=== PATIENT | female | born 1935 | race Caucasian/White ===

== ENCOUNTER 2016-04-14 08:36 | Outpatient (CLI) | payer MEDICARE, BC | END 2016-04-14 08:37 | disposition home or self-care (01) | DX: R19.7 Diarrhea, unspecified (principal); K62.5 Hemorrhage of anus and rectum; K63.89 Other specified diseases of intestine ==

== ENCOUNTER 2016-05-25 08:00 | Outpatient (CLI) | payer MEDICARE, BC | END 2016-05-25 08:01 | disposition home or self-care (01) | DX: Z79.899 Other long term (current) drug therapy (principal); K51.919 Ulcerative colitis, unspecified with unspecified complications; D64.9 Anemia, unspecified ==

== ENCOUNTER 2016-05-31 10:16 | Outpatient (CLI) | payer MEDICARE, BC ==
[2016-05-31] MEDS ORDERED: IOPAMIDOL-300 100 ML VIAL IVP ONE ×2 (10:54)
== END 2016-05-31 10:17 | disposition home or self-care (01) ==
DX: R91.1 Solitary pulmonary nodule (principal)
CPT/HCPCS: 71260; Q9967

== ENCOUNTER 2016-07-20 08:07 | Outpatient (CLI) | payer MEDICARE, BC | END 2016-07-20 08:08 | disposition home or self-care (01) | DX: D64.9 Anemia, unspecified (principal) ==

== ENCOUNTER 2016-09-28 10:32 | Outpatient (CLI) | payer MEDICARE, BC ==
--- NOTE | 2016-09-28 14:36 | XRAY Report ---
THREE VIEW LEFT GREAT TOE: 09/28/2016 CLINICAL INDICATION: Pain. FINDINGS: AP, lateral, and oblique views of the left great toe demonstrate osteoarthritis of the 1st metatarsophalangeal joint. There is no evidence of acute fracture or dislocation. No radiopaque fore ign body is seen in the soft tissues. IMPRESSION: OSTEOARTHRITIS. NO EVIDENCE OF ACUTE FRACTURE. JOB #: [id number] EXT JOB #:[id number]
--- NOTE | 2016-09-28 15:12 | XRAY Report ---
THREE VIEW LUMBAR SPINE: 09/28/2016 CLINICAL INDICATION: Back pain after fall last week. FINDINGS: AP, lateral, and coned down views of the lumbar spine are compared to previous films of . Degenerative disk and facet disease appears stable, as does degenerative levoscoliosis. There is no e vidence of compression fracture. Degenerative anterolisthesis of L4 on L5 is unchanged. IMPRESSION: DEGENERATIVE CHANGES. NO EVIDENCE OF INTERVAL FRACTURE. JOB #: [id number] EXT JOB #:[id number]
== END 2016-09-28 10:33 | disposition home or self-care (01) ==
LOC: DI 10:32
PROVIDERS: ATTEND Internal Medicine
DX: M19.072 Primary osteoarthritis, left ankle and foot (principal); M51.36 Other intervertebral disc degeneration, lumbar region; M47.896 Other spondylosis, lumbar region; M43.16 Spondylolisthesis, lumbar region
CPT/HCPCS: 72100; 73660

== ENCOUNTER 2016-10-21 10:25 | Outpatient (CLI) | payer MEDICARE, BC | END 2016-10-21 10:26 | disposition home or self-care (01) | LOC: LAB.R 10:25 | PROVIDERS: ATTEND Internal Medicine | DX: R35.0 Frequency of micturition (principal) | CPT/HCPCS: 87086 ==

== ENCOUNTER 2017-03-16 07:46 | Day surgery (SDC) | payer MEDICARE, BC ==
[~2017-03-16 07:46] MED LIST: BRIMONIDINE 0.2% OPHTH DROPS 5 ML ONE; CYCLOPENTOLATE 1% OPHTH DROPS 2 ML ONE; KETOROLAC 0.45% OPHTH DROPS ONE; MIDAZOLAM 2 MG/2 ML VIAL IVP ONE; PHENYLEPHRINE 2.5% OPHTH 2 ML DROPS ONE; PROPARACAINE 0.5% OPHTH DROPS 15 ML ONE; TIMOLOL 0.5% OPHTH DROPS ONE
[2017-03-16] MEDS ORDERED: PROPARACAINE 0.5% OPHTH DROPS 15 ML RIGHTEYE ONE ×3 (08:30→09:11)
[2017-03-16] MEDS ORDERED: CYCLOPENTOLATE 1% OPHTH DROPS 2 ML RIGHTEYE ONE (08:30)
[2017-03-16] MEDS ORDERED: KETOROLAC 0.45% OPHTH DROPS RIGHTEYE ONE (08:30)
[2017-03-16] MEDS ORDERED: PHENYLEPHRINE 2.5% OPHTH 2 ML DROPS RIGHTEYE ONE (08:30)
[2017-03-16] MEDS ORDERED: LACTATED RINGERS 500 ML IV ONE (08:38)
[2017-03-16] MEDS ORDERED: EPINEPHrine 1 MG/ML AMP IVP ONE ×2 (09:08→09:11)
[2017-03-16] MEDS ORDERED: BRIMONIDINE 0.2% OPHTH DROPS 5 ML OPTH ONE ×2 (09:08→09:11)
[2017-03-16] MEDS ORDERED: TRIAMCIN/MOXIFLOX/VANCO 1 ML VIAL IO ONE ×3 (09:09→09:11)
[2017-03-16] MEDS ORDERED: TIMOLOL 0.5% OPHTH DROPS OPTH ONE ×2 (09:09→09:11)
[2017-03-16] MEDS ORDERED: CHONDR SULF/HYALURONATE SYRINGE IO ONE ×2 (09:09→09:11)
[2017-03-16] MEDS ORDERED: BSS/LIDOCAINE/EPINEPHRINE 1 ML SYRINGE IO ONE ×3 (09:09→09:11)
[2017-03-16 09:45] VITALS: BP 137/59
--- NOTE | 2017-03-17 15:25 | OPERATIVE REPORT ---
DATE OF SURGERY: 03/16/2017 PREOPERATIVE DIAGNOSIS: Visually significant cataract, right eye. Cataract surgery was performed on the left eye on 12/25/2008 by a different surgeon. She has about 1-3/4 diopter of astigmatism in the left eye and wished to have arcuates placed on the left eye as long as we had the laser available, which was performed. POSTOPERATIVE DIAGNOSIS: Visually significant cataract, right eye. Cataract surgery was performed on the left eye on 12/25/2008 by a different surgeon. She has about 1-3/4 diopter of astigmatism in the left eye and wished to have arcuates placed on the left eye as long as we had the laser available, which was performed. PROCEDURE: Phacoemulsification with posterior chamber intraocular lens implant, right eye. SURGEON: Ector Arellano MD ANESTHESIA: Monitored anesthesia care. COMPLICATIONS: None. OPERATIVE INDICATIONS: This is an 81-year-old woman with progressive vision loss in the right eye due to 4+ nuclear sclerotic cataract. Best corrected visual acuity was 20/25 with glare to 20/80 in the right eye. INDICATIONS FOR SURGERY: Overall decrease in vision, difficulty seeing words on a computer screen, difficulty reading and difficulty driving in low light or at night. She was consented at length concerning risks and benefits of cataract surgery, after which she expressed desire to proceed with surgery. OPERATIVE PROCEDURE: The patient was taken to OR #3 and placed under monitored anesthesia care. Surgical timeout was conducted confirming correct patient, correct procedure and correct surgical site. She was placed on the LenSx laser and her eye docked to interface, left eye first. Two arcuate incisions were placed on the left eye with the laser in about 4 seconds. The laser was then placed over the right eye and the right eye was docked to the laser interface. The laser performed the capsulotomy and lens softening, phaco wounds and arcuate keratotomy incisions on the right eye. She was then moved to the operating microscope, given topical anesthesia and prepped and draped in the usual sterile fashion. Eye was entered at the 12 and 9 o'clock positions. Intracameral Shugarcaine was injected into the anterior chamber, followed by Viscoat. Capsulorrhexis flap created by the LenSx laser was removed from the anterior chamber. Nucleus was hydrodissected and phacoemulsified. Cortex was evacuated using automated infusion aspiration; however, after starting with the nasal side, there was a small dehiscence nasally. Cortical cleanup was continued ; however, while removing the sub-wound cortex, it was noticed that most of the posterior capsule had now parted ways. There was a about a quadrant of cortex inferotemporally. Viscoat was injected in the wound. There was no vitreous. So the sulcus was inflated with Provisc and a 20.0 three-piece [id number] intraocular lens was injected into the sulcus and placed into rhexis capture as the anterior capsule was intact. Again, no vitreous to the wound. Approximately 0.7 mL of a mixture of triamcinolone, moxifloxacin, and vancomycin was injected subconjunctivally in the superior quadrant for infection and inflammation prophylaxis. I and A was used to evacuate the viscoelastic materials. The eye was pushed back into rhexis capture again. Eye was inflated to physiologic pressure using a balanced salt solution and found to be watertight. The patient was taken from the operating room in good condition and given postoperative instructions and she was also informed of the backup lens use and why and will be followed up with tomorrow. TD: 03/17/2017 07:54 JOHN PAUL
== END 2017-03-16 07:47 | disposition home or self-care (01) ==
LOC: SDS 07:46
PROVIDERS: ATTEND Ophthalmology
PROC: 08RJ3JZ Replacement of Right Lens with Synthetic Substitute, Percutaneous Approach (ICD-10-PCS; principal; 2017-03-16 09:00)
DX: H25.11 Age-related nuclear cataract, right eye (principal); H52.201 Unspecified astigmatism, right eye
CPT/HCPCS: 66984; A9270; J3490; V2632

== ENCOUNTER 2017-04-06 06:48 | Day surgery (SDC) | payer MEDICARE, BC ==
[2017-04-06] MEDS ORDERED: LACTATED RINGERS 1,000 ML IV ONE (07:30)
[2017-04-06] MEDS ORDERED: MIDAZOLAM 2 MG/2 ML VIAL IVP ONE (08:02)
[2017-04-06] MEDS ORDERED: BRIMONIDINE 0.2% OPHTH DROPS 5 ML OPTH ONE (08:25)
[2017-04-06] MEDS ORDERED: EPINEPHrine 1 MG/ML AMP IVP ONE (08:25)
[2017-04-06] MEDS ORDERED: TRIAMCIN/MOXIFLOX/VANCO 1 ML VIAL IO ONE (08:26)
[2017-04-06] MEDS ORDERED: BSS/LIDOCAINE/EPINEPHRINE 1 ML SYRINGE IO ONE (08:26)
[2017-04-06] MEDS ORDERED: CHONDR SULF/HYALURONATE SYRINGE IO ONE (08:26)
[2017-04-06] MEDS ORDERED: TIMOLOL 0.5% OPHTH DROPS OPTH ONE (08:26)
[2017-04-06] MEDS ORDERED: ACETYLCHOLINE 20 MG/2 ML KIT IO ONE ×4 (08:27→09:07)
[2017-04-06 10:30] VITALS: BP 134/84
--- NOTE | 2017-04-06 11:02 | OPERATIVE REPORT ---
DATE OF SERVICE: 04/06/2017 Physician: Ector Arellano MD DATE OF SURGERY: 04/06/2017 PREOPERATIVE DIAGNOSIS: Subluxed intraocular lens, right eye. The lens was noted to be subluxed 1 day post-op from a cataract surgery on 03/16/2017. POSTOPERATIVE DIAGNOSIS: Subluxed intraocular lens, right eye. The lens was noted to be subluxed 1 day post-op from a cataract surgery on 03/16/2017. PROCEDURE PERFORMED: Iris suture fixation of posterior chamber intraocular lens. SURGEON: Dr. Ector Arellano. ANESTHESIA: Monitored anesthesia care. COMPLICATIONS: None. OPERATIVE INDICATIONS: This is an 81-year-old woman who underwent cataract surgery on 03/16/2017. On 03/17/2017, one day post-op, it was noted that the IOL was not sulcus fixated and was in fact subluxed inferonasally. Vision was poor. It was decided at to attempt either iris suture fixation of the 3-piece existing IOL or, if that was not possible, to explant the IOL and place an anterior chamber intraocular lens instead. She was consented at length concerning risks and benefits of IOL repositioning and iris fixation and/or anterior chamber lens after IOL explantation and she expressed desire to proceed with surgery. OPERATIVE PROCEDURE: The patient was taken into OR #3 and placed under monitored anesthesia care. A surgical timeout was conducted confirming the correct patient, correct procedure, and correct surgical site. She was given topical anesthesia and then prepped and draped in the usual sterile fashion. The eye was entered at the 12 o'clock position through which intracameral Shugarcaine and Viscoat was placed into the anterior chamber. Using micrograspers and a Kuglen hook, the iris was pushed out of the way to find the IOL. It wasfound to be displaced rather dramatically to the nasal side, but the IOL was able to be grasped by the micrograspers. The optic was brought up through the pupil leaving the haptics behind the iris, leaving the IOL optic in pupil-capture. Once this was performed, four 1-mm paracenteses were placed superonasally, superotemporally, inferotemporally and inferonasally in order to accommodate suturing. The IOL was levitated with the micrograspers and a CIF-4 with a 13-mm needle on a 10.0 Prolene suture was passed through the nasal paracentesis inferiorly, through the iris, beneath the inferior haptic, back out through the iris, and then a cannula was used to guide the needle through the inferotemporal paracentesis. The suture was left untied while the same procedure was performed through the superior paracentesis in order to suture capture the superior IOL haptic. Once both haptics were snagged, a Sinskey hook was introduced through a new superior paracentesis and both suture ends were pulled through the paracentesis. This was also performed with the inferior suture. Once both sutures had been brought externally, tiers were used to place locked sutures in a 2-1-1 loop configuration, both superiorly and inferiorly. After more viscoelastic was placed in the eye, microscissors were brought into the anterior chamber through the previously made phaco wound and the suture tails cut short. A vitrector was placed behind the IOL and an anterior core vitrectomy was performed to remove vitreous from the anterior chamber. With the sutures in place, the IOL was centered. More Miochol was injected into the eye to bring the pupil down. The IOL optic was pushed back through the pupil into the posterior chamber. The pupil centered-up and was round. The vitrector was used to remove viscoelastic from the anterior chamber. The main wound was sutured with one 10-0 nylon suture and the eye was watertight. Some triamcinolone, moxifloxacin, vancomycin was injected into the anterior chamber to look for vitreous. All vitreous was away from the wound but here was some coming through along the temporal pupil margin, but was left alone. The rest of the triamcinolone, moxifloxacin, vancomycin solution was injected superiorly under the conjunctiva for infection and inflammation prophylaxis. The eye was again verified to be water pressure tight, the patient was taken from the operating room in good condition, and given postoperative instructions. TD: 04/06/2017 11:49 JOHN PAUL
== END 2017-04-06 06:49 | disposition home or self-care (01) ==
LOC: SDS 06:48
PROVIDERS: ATTEND Ophthalmology
PROC: 08W Eye, Revision (ICD-10-PCS; principal; 2017-04-06 08:00)
DX: T85.22XA Displacement of intraocular lens, initial encounter (principal)
CPT/HCPCS: 66825; A9270; J7120

== ENCOUNTER 2017-05-22 08:51 | Outpatient (CLI) | payer MEDICARE, BC ==
--- NOTE | 2017-05-22 12:42 | XRAY Report ---
TWO VIEW CHEST: 05/22/2017 CLINICAL INDICATION: Cough. COMPARISON: CT 05/31/2016. FINDINGS: Frontal and lateral views of the chest demonstrate a normal cardiac silhouette. The lungs demonstrate minimal stable scarring. No new infiltrate, effusion, or pneumothorax is present. IMPRESSION: MINIMAL SCARRING. NO EVIDENCE OF ACUTE CARDIOPULMONARY DISEASE. TD: 05/22/2017 12:41
== END 2017-05-22 08:52 | disposition home or self-care (01) ==
LOC: DI 08:51
PROVIDERS: ATTEND Internal Medicine
DX: R05 Cough (principal)
CPT/HCPCS: 71046

== ENCOUNTER 2017-09-08 07:42 | Outpatient (CLI) | payer MEDICARE, BC ==
[2017-09-08 08:05] LABS: BASOPHILS % (AUTO) 0.4 %; EOSINOPHILS # (AUTO) 0.1 10^3/uL (0.0-0.7); EOSINOPHILS % (AUTO) 1.9 %; HGB - HEMOGLOBIN 12.7 g/dL (12.0-16.0); LYMPHOCYTES % (AUTO) 35.7 %; MEAN CORPUSCULAR HEMOGLOBIN 32.5 pg (27.0-31.0); MEAN CORPUSCULAR VOLUME 95.6 fL (81.0-99.0); MEAN PLATELET VOLUME 7.1 fL (7.9-10.8); MONOCYTES # (AUTO) 0.4 10^3/uL (0.0-1.0); MONOCYTES % (AUTO) 7.4 %; NEUTROPHILS # (AUTO) 3.1 10^3/uL (1.5-6.6); NEUTROPHILS % (AUTO) 54.6 %; PLT - PLATELET COUNT 326 10^3/uL (130-450); RED BLOOD COUNT 3.91 10^6/uL (4.20-5.40); WHITE BLOOD COUNT 5.7 x10^3/uL (4.8-10.8)
[2017-09-08 08:32] LABS: ALBUMIN 3.8 g/dL (3.2-5.5); ALBUMIN/GLOBULIN RATIO 1.2 (1.0-2.2); BILIRUBIN,TOTAL 0.6 mg/dL (0.2-1.0); CALCIUM 8.8 mg/dL (8.5-10.3); CRP HIGH SENSITIVITY 3.3 mg/L
== END 2017-09-08 07:43 | disposition home or self-care (01) ==
LOC: LAB 07:42
PROVIDERS: ATTEND Internal Medicine Gastroenterology
DX: K51.00 Ulcerative (chronic) pancolitis without complications (principal)
CPT/HCPCS: 36415; 80053; 82306; 82728; 83540; 84466; 85025; 85651; 86141

== ENCOUNTER 2017-10-24 08:00 | Outpatient (CLI) | payer MEDICARE, BC ==
[2017-10-24 13:36] LABS: BASOPHILS % (AUTO) 0.3 %; EOSINOPHILS # (AUTO) 0.1 10^3/uL (0.0-0.7); EOSINOPHILS % (AUTO) 2.2 %; HGB - HEMOGLOBIN 12.7 g/dL (12.0-16.0); LYMPHOCYTES # (AUTO) 1.8 10^3/uL (1.5-3.5); LYMPHOCYTES % (AUTO) 39.2 %; MEAN CORPUSCULAR HEMOGLOBIN 32.6 pg (27.0-31.0); MEAN CORPUSCULAR HGB CONC 33.8 g/dL (32.0-36.0); MEAN CORPUSCULAR VOLUME 96.5 fL (81.0-99.0); MEAN PLATELET VOLUME 7.6 fL (7.9-10.8); MONOCYTES # (AUTO) 0.4 10^3/uL (0.0-1.0); MONOCYTES % (AUTO) 8.3 %; NEUTROPHILS # (AUTO) 2.3 10^3/uL (1.5-6.6); PLT - PLATELET COUNT 347 10^3/uL (130-450); RED BLOOD COUNT 3.89 10^6/uL (4.20-5.40); RED CELL DISTRIBUTION WIDTH 13.2 % (12.0-15.0); WHITE BLOOD COUNT 4.6 x10^3/uL (4.8-10.8)
[2017-10-24 13:50] LABS: ALBUMIN 3.9 g/dL (3.2-5.5); ALBUMIN/GLOBULIN RATIO 1.4 (1.0-2.2); BILIRUBIN,TOTAL 0.9 mg/dL (0.2-1.0); CALCIUM 8.8 mg/dL (8.5-10.3); TOTAL PROTEIN 6.7 g/dL (6.7-8.2)
== END 2017-10-24 08:01 | disposition home or self-care (01) ==
LOC: LAB.R 08:00
PROVIDERS: ATTEND Internal Medicine
DX: K51.90 Ulcerative colitis, unspecified, without complications (principal); R05 Cough; M19.90 Unspecified osteoarthritis, unspecified site; Z79.899 Other long term (current) drug therapy
CPT/HCPCS: 80053; 84443; 85025

== ENCOUNTER 2017-11-09 09:56 | Outpatient (CLI) | payer MEDICARE, BC ==
--- NOTE | 2017-11-09 11:48 | DEXA Report ---
Procedure Date: 11/09/2017 Accession Number: [id number] / [id number] Procedure: DEX - Dexa Spine and/or Hip CPT Code: FULL RESULT: EXAM: Dexa Spine and/or Hip DATE: 11/09/2017 10:38 AM CLINICAL HISTORY: POSTMENOPAUSAL TECHNIQUE: Dual energy x-ray absorptiometry (DXA) was performed on a TORCH.sh System. Regions measured are the AP Spine, femoral neck, and if needed forearm. COMPARISON: None. In accordance with the International Society for Clinical Densitometry (ISCD) guidelines, data from previous exams may be reanalyzed using current recommendations and techniques. This is done to allow a more accurate basis for comparison with the current study. FINDINGS: The data for the lumbar spine is as follows: BMD (g/cm/cm) T-SCORE Z-SCORE REGION L1 0.941 -1.6 0.6 L2 1.075 -1.0 1.1 L3 1.261 0.5 2.7 L4 1.347 1.2 3.4 TOTAL 1.186 0.1 2.2 NOTE: All evaluable vertebrae are used for classification The data for the hip is as follows: BMD (g/cm/cm) T-SCORE Z-SCORE REGION Neck 0.815 -1.6 0.9 TOTAL 0.906 -0.8 1.6 NOTE: The femoral neck or total proximal femur, whichever is lowest, is used for classification. IMPRESSION: THE WHO CLASSIFICATION BASED ON THE INTERNATIONAL REFERENCE STANDARD IS OSTEOPENIA. THE FRACTURE RISK IS INCREASED. RECOMMENDATION: Patients with diagnosis of osteoporosis or osteopenia should have regular bone mineral density assessment. For those eligible for Medicare, routine testing is allowed once every 2 years. Testing frequency can be increased for patients who have rapidly progressing disease or for those who are receiving medical therapy to restore bone mass. COMMENT: World Health Organization (WHO) definitions for osteoporosis and osteopenia: NORMAL BMD: T-score at -1.0 or higher, fracture risk is low OSTEOPENIA BMD: T-score between -1.0 and -2.5, fracture risk is increased. OSTEOPOROSIS BMD: T-score at -2.5 or lower, fracture risk is high. National Osteoporosis Foundation recommends: 1. Obtain adequate dietary calcium (at least 1200 mg per day) and vitamin D (400-800 international units per day). 2. Participate, as appropriate, in regular weightbearing and muscle-strengthening exercise. 3. Avoid tobacco use and reduce alcohol and caffeine intake. 4. For more detailed information see the website at www.NOF.org.
== END 2017-11-09 09:57 | disposition home or self-care (01) ==
LOC: DI 09:56
PROVIDERS: ATTEND Internal Medicine
DX: M85.89 Other specified disorders of bone density and structure, multiple sites (principal); Z78.0 Asymptomatic menopausal state
CPT/HCPCS: 77080

== ENCOUNTER 2018-08-16 10:58 | Outpatient (CLI) | payer MEDICARE, BC ==
--- NOTE | 2018-08-16 15:26 | XRAY Report ---
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 CLINICAL HISTORY: Painful left hallux and 2nd MT joints. COMPARISON: TOE(S) LT 09/28/2016 10:39 AM. TECHNIQUE: 3 views. FINDINGS: Bones: Normal. No fractures or bone lesions. Joints: Stable mild bunion deformity. Stable mild to moderate degenerative arthritis with greater involvement of the metatarsal head. Soft Tissues: Normal. No soft tissue swelling. IMPRESSION: Stable mild bunion deformity and degenerative changes of the first MTP joint. No acute fracture. RADIA
== END 2018-08-16 10:59 | disposition home or self-care (01) ==
LOC: DI 10:58
PROVIDERS: ATTEND Podiatrist
DX: M21.612 Bunion of left foot (principal); M19.072 Primary osteoarthritis, left ankle and foot

== ENCOUNTER 2018-11-30 08:00 | Outpatient (CLI) | payer MEDICARE, BC ==
[2018-11-30 21:36] LABS: CANDIDA GROUP DNA NEGATIVE (NEGATIVE); CANDIDA KRUSEI DNA NEGATIVE (NEGATIVE); TRICHOMONAS VAGINALIS DNA NEGATIVE (NEGATIVE)
== END 2018-11-30 23:59 | disposition home or self-care (01) ==
LOC: LAB.R 08:00
PROVIDERS: ATTEND Obstetrics & Gynecology
DX: N76.0 Acute vaginitis (principal)
CPT/HCPCS: 87661; 87801

== ENCOUNTER 2019-07-04 07:00 | Outpatient (CLI) | payer MEDICARE, BC | END 2019-07-04 23:59 | disposition home or self-care (01) | LOC: LAB.WCP 07:00 | PROVIDERS: ATTEND Physician Assistant Medical | DX: R30.0 Dysuria (principal) | CPT/HCPCS: 87086 ==

== ENCOUNTER 2019-12-24 08:09 | Outpatient (CLI) | payer MEDICARE, BC ==
[2019-12-24] MEDS ORDERED: IOVERSOL 320 100 ML VIAL IVP ONE ×2 (08:23→10:21)
[2019-12-24] MEDS ORDERED: IOVERSOL 320 50 ML VIAL ONE (08:24)
[2019-12-24] MEDS ORDERED: IOVERSOL 320 50 ML VIAL PO ONE (10:21)
--- NOTE | 2019-12-24 10:45 | CT Report ---
PROCEDURE: Abdomen/Pelvis W INDICATIONS: MYCOSIS FUNGOIDES CONTRAST: IV CONTRAST: Optiray 320 ml: 100 PO CONTRAST: Optiray 320 ml50 TECHNIQUE: After the administration of contrast, 5 mm thick sections acquired from the diaphragms to the sym physis. 5 mm thick coronal and sagittal reformats were acquired. For radiation dose reduction, the following was used: automated exposure control, adjustment of mA and/or kV according to patient size . COMPARISON: None. FINDINGS: Image quality: Excellent. ABDOMEN: Lung bases: Lung bases are clear. Heart size is normal. Moderate-sized paraesophageal hernia identi fied. Solid organs: Liver and spleen are normal in size and enhancement. Gallbladder is unremarkable. Bi liary system is non dilated. Pancreas enhances normally. No adrenal nodules. Kidneys demonstrate n ormal size and enhancement, without hydronephrosis. Spleen is unremarkable. There are scattered sple bryce calcifications likely representing remote granulomatous disease. Peritoneum and bowel: Bowel loops demonstrate normal wall thickness and caliber. Patulous appearing cecum which abuts the right ovary/adnexa. No free fluid or air. Nodes and vessels: No retroperitoneal or mesenteric adenopathy by size criteria. Aorta and inferior vena cava are normal in size. Miscellaneous: No ventral hernias. PELVIS: Genitourinary: Bladder wall thickness is normal. Miscellaneous: No inguinal hernias or adenopathy. Bones: No suspicious bony lesions. No acute vertebral body compression fractures. Multilevel spond ylitic changes throughout the imaged spine. Findings are most severe at L4-5 and and L2-3. IMPRESSION: 1. No acute abnormalities identified in the abdomen or pelvis. 2. No evidence for metastatic disease in the chest or abdomen. Specifically, no adenopathy is identif ied. 3. Moderate-sized paraesophageal hernia. Reviewed by: Dario Angeles MD on 12/24/2019 10:44 AM PDT Approved by: Dario Angeles MD on 12/24/2019 10:44 AM PDT Station ID: [id number]
--- NOTE | 2019-12-24 12:27 | CT Report ---
PROCEDURE: CHEST W INDICATIONS: MYCOSIS FUNGOIDES CONTRAST: IV CONTRAST: Optiray 320 ml: 100 PO CONTRAST: Optiray 320 ml50 TECHNIQUE: After the administration of intravenous contrast, 5 mm thick sections acquired from the pulmonary api tony to the posterior costophrenic angles. 7 mm thick coronal MIP reformats were acquired. For radia tion dose reduction, the following was used: automated exposure control, adjustment of mA and/or kV according to patient size. COMPARISON: 05/31/2016. FINDINGS: Image quality: Excellent. Lungs and pleura: Continued interval decrease in size and conspicuity of pleural-based inferior righ t upper lobe opacity likely representing postinfectious scarring. Multiple calcified granulomas are r edemonstrated. Numerous scattered noncalcified lymph nodes are visualized and remain stable in appear ance. However, 2 demonstrate slight interval increase in conspicuity/density but not size. One is not ed in the posterior aspect of the superior right lower lobe measuring 6 mm in size (image 129, series 3). The second is noted in the periphery of the left lower lobe measuring 5 mm (image 225, series 3) . No acute air space opacities. No pleural effusions or pneumothorax. Central and peripheral airway s are patent and normal in caliber. Mediastinum: Heart size is normal. No pericardial effusion. No mediastinal or hilar adenopathy by size criteria. Multiple calcified mediastinal and right hilar lymph nodes compatible with prior granu lomatous disease. Thoracic aorta and central pulmonary arteries are normal in size. Esophagus is no rmal in caliber. Moderate-sized paraesophageal hernia is noted. Bones and chest wall: No suspicious bony lesions. No acute vertebral body compression fractures. M ultilevel thoracic spondylitic changes most severe in the upper thoracic spine, not significantly antonio nged. No axillary or supraclavicular adenopathy by size criteria. Thyroid gland is unremarkable. Abdomen: Visualized upper abdominal solid organs appear normal. Upper abdominal bowel loops are nor mal in caliber. IMPRESSION: 1. CT chest without acute cardiopulmonary abnormalities. 2. Redemonstration of multiple scattered bilateral noncalcified pulmonary nodules. Most are stable in size with 2 appearing more dense. The largest nodule measures approximately 6 mm. Recommend follow-u p chest CT in 3-6 months to document continued stability. 3. No CT evidence for suspicious adenopathy in the axilla, mediastinum, or hilum. 4. Findings compatible with prior granulomatous disease. Reviewed by: Dario Angeles MD on 12/24/2019 12:25 PM PDT Approved by: Dario Angeles MD on 12/24/2019 12:25 PM PDT Station ID: [id number]
== END 2019-12-24 08:10 | disposition home or self-care (01) ==
LOC: DI 08:09
PROVIDERS: ATTEND Dermatology
DX: C84.00 Mycosis fungoides, unspecified site (principal); R91.8 Other nonspecific abnormal finding of lung field; K44.9 Diaphragmatic hernia without obstruction or gangrene
CPT/HCPCS: 71260; 74177; Q9967

== ENCOUNTER 2020-09-04 13:57 | Outpatient (CLI) | payer MEDICARE, BC | END 2020-09-04 13:58 | disposition home or self-care (01) | LOC: COV 13:57 | PROVIDERS: ATTEND Surgery | DX: Z01.812 Encounter for preprocedural laboratory examination (principal); K51.90 Ulcerative colitis, unspecified, without complications; K21.9 Gastro-esophageal reflux disease without esophagitis; R10.13 Epigastric pain; Z92.83 Personal history of failed moderate sedation; Z20.822 Contact with and (suspected) exposure to COVID-19 ==

== ENCOUNTER 2020-09-07 07:07 | Day surgery (SDC) | payer MEDICARE, BC ==
[2020-09-07] MEDS ORDERED: LACTATED RINGERS 1,000 ML IV ONE (07:11)
[2020-09-07] MEDS ORDERED: PROPOFOL 200 MG/20 ML VIAL IVP ONE (08:08)
[2020-09-07] MEDS ORDERED: LIDOCAINE-MPF 2% 5 ML VIAL ONE (08:08)
[2020-09-07] MEDS ORDERED: MIDAZOLAM 2 MG/2 ML VIAL ONE (08:09)
[2020-09-07] MEDS ORDERED: fentaNYL 100 MCG/2 ML VIAL ONE (08:09)
--- NOTE | 2020-09-07 08:13 | ANESTHESIA ---
Pre-Anesthesia VS, & Labs - Diagnosis gerd, dyspepsia - Procedure egd, cscope Vital Signs: Temp Pulse Resp BP Pulse Ox 36.1 C L 75 16 146/62 H 97 09/07/20 07:14 09/07/20 07:14 09/07/20 07:14 09/07/20 07:14 09/07/20 07:14 Height: 5 ft 3 in Weight (kg): 54.8 kg Body Mass Index: 21.4 BMI Classification: Healthy weight - NPO >8 hours - Is Patient ?: No - Lab Results Lab results reviewed: Yes Home Medications and Allergies Home Medications: Ambulatory Orders Vedolizumab [Entyvio] 300 mg IV ONCE 09/04/20 Multivitamin [Multi Vitamin Daily] 1 mg PO DAILY 06/13/14 Docosahexaenoic Acid/Epa [Fish Oil Concentrate Softgel] 1 cap PO DAILY 12/23/14 Cholecalciferol (Vitamin D3) [Vitamin D3] 1 tab ORAL DAILY 02/23/16 Vit A/Vit C/Vit E/Zinc/Copper [Icaps Areds Softgel] 1 each PO BID 07/20/17 Lactobacillus Acidophilus [Probiotic Acidophilus] 1 tab ORAL DAILY 07/29/19 Mecobalamin [B-12] 1 tab PO DAILY 03/06/20 Vedolizumab [Entyvio] 300 mg IV ONCE 09/04/20 Allergies/Adverse Reactions: Allergies Allergy/AdvReac Type Severity Reaction Status Date / Time prednisone AdvReac Rash Verified 07/29/19 09:04 Sulfa (Sulfonamide AdvReac Unknown Verified 07/29/19 09:04 Antibiotics) Anes History & Medical History - Anesthetic History Anesthesia Complications: reports: No previous complications Family history of Anesthesia Complications: Denies Family history of Malignant Hyperthermia: Denies - Medical History Cardiovascular: reports: High cholesterol Pulmonary: reports: Asthma, Pneumonia Gastrointestinal: reports: GERD, Ulcerative colitis Urinary: reports: None Musculoskeletal: reports: Rheumatoid arthritis Endocrine/Autoimmune: reports: None Blood Disorders: reports: None Skin: reports: Rosacea Smoking Status: Former smoker - Surgical History Eyes Ears Nose Throat (EENT): reports: Cataracts, Tonsil/Adenoidectomy Orthopedic: reports: Other Exam General: Alert, Oriented x3, Cooperative Dental: WNL Mouth Openin Fingerbreadth Neck Mobility: Normal Mallampati classification: II Thyromental Distance: 4-6 cm Respiratory: Lungs clear, Normal breath sounds, No respiratory distress Cardiovascular: Regular rate Neurological: Normal speech Mental/Cognitive Status: Alert/Oriented X3, Normal for patient Cognitive Status: Within normal limits Plan Anesthesia Type: Total IV Consent for Procedure(s) Verified and Reviewed: Yes Code Status: Attempt Resuscitation ASA classification: 2-Mild systemic disease Is this case an emergency?: No
[2020-09-07] MEDS ORDERED: LACTATED RINGERS 200 ML IV ONE (09:41)
[2020-09-07 10:20] VITALS: BP 149/51
--- NOTE | 2020-09-07 10:54 | ANESTHESIA POST OP EVALUATION ---
Anesthesia Post Eval - Post Anesthesia Eval Vitals: Last Vital Signs Temp 36.2 C L 09/07/20 10:14 Pulse 57 L 09/07/20 10:19 Resp 16 09/07/20 10:19 BP 149/51 H 09/07/20 10:19 Pulse Ox 99 09/07/20 10:19 CV Function Including HR & BP: Stable Pain Control: Satisfactory Nausea & Vomiting: Negative Mental Status: Baseline Respiratory Status: Airway Patent Hydration Status: Satisfactory Anesthesia Complications: None
== END 2020-09-07 07:08 | disposition home or self-care (01) ==
LOC: SDS 07:07
PROVIDERS: ATTEND Surgery
PROC: 0DBP8ZX Excision of Rectum, Via Natural or Artificial Opening Endoscopic, Diagnostic (ICD-10-PCS; 2020-09-07)
PROC: 0DBB8ZX Excision of Ileum, Via Natural or Artificial Opening Endoscopic, Diagnostic (ICD-10-PCS; 2020-09-07)
PROC: 0DBM8ZX Excision of Descending Colon, Via Natural or Artificial Opening Endoscopic, Diagnostic (ICD-10-PCS; 2020-09-07)
PROC: 0DBH8ZX Excision of Cecum, Via Natural or Artificial Opening Endoscopic, Diagnostic (ICD-10-PCS; 2020-09-07)
PROC: 0DB98ZX Excision of Duodenum, Via Natural or Artificial Opening Endoscopic, Diagnostic (ICD-10-PCS; 2020-09-07)
PROC: 0DB78ZX Excision of Stomach, Pylorus, Via Natural or Artificial Opening Endoscopic, Diagnostic (ICD-10-PCS; 2020-09-07)
PROC: 0DB38ZX Excision of Lower Esophagus, Via Natural or Artificial Opening Endoscopic, Diagnostic (ICD-10-PCS; 2020-09-07)
PROC: 0DB48ZX Excision of Esophagogastric Junction, Via Natural or Artificial Opening Endoscopic, Diagnostic (ICD-10-PCS; 2020-09-07)
PROC: 0W3P8ZZ Control Bleeding in Gastrointestinal Tract, Via Natural or Artificial Opening Endoscopic (ICD-10-PCS; 2020-09-07)
PROC: 0DBK8ZX Excision of Ascending Colon, Via Natural or Artificial Opening Endoscopic, Diagnostic (ICD-10-PCS; principal; 2020-09-07 08:15)
PROC: 0DBL8ZX Excision of Transverse Colon, Via Natural or Artificial Opening Endoscopic, Diagnostic (ICD-10-PCS; 2020-09-07 08:15)
DX: K52.9 Noninfective gastroenteritis and colitis, unspecified (principal); K62.89 Other specified diseases of anus and rectum; K57.30 Diverticulosis of large intestine without perforation or abscess without bleeding; K64.8 Other hemorrhoids; K44.9 Diaphragmatic hernia without obstruction or gangrene; K21.9 Gastro-esophageal reflux disease without esophagitis; K29.50 Unspecified chronic gastritis without bleeding; J45.909 Unspecified asthma, uncomplicated; Z87.891 Personal history of nicotine dependence; Z92.83 Personal history of failed moderate sedation
CPT/HCPCS: 43239; 43255; 45380; J7120

== ENCOUNTER 2020-12-28 12:50 | Outpatient (CLI) | payer MEDICARE, BC ==
--- NOTE | 2020-12-28 14:41 | XRAY Report ---
PROCEDURE: Hip w/Pelvis 2-3V RT INDICATIONS: DEGENERATIVE JOINT DISEASE HIP,RT TECHNIQUE: AP pelvis with lateral view(s) of the bilateral hip(s). COMPARISON: None. FINDINGS: No acute fracture. Severe levoscoliosis of the lumbar spine. Scattered multilevel endplate spurring a nd diffuse facet arthropathy. Moderate bilateral hip joint degeneration. Degenerative sclerosis and spurring at the pubis symphysis . Soft tissues: The visualized bowel gas pattern is normal. No suspicious soft tissue calcifications . IMPRESSION: Moderate bilateral hip joint degeneration. Levoscoliosis of lumbar spine Lumbar spondylosis and facet arthropathy Reviewed by: Calin Moran MD on 12/28/2020 2:40 PM PDT Approved by: Calin Moran MD on 12/28/2020 2:40 PM PDT Station ID: [id number]
== END 2020-12-28 12:51 | disposition home or self-care (01) ==
LOC: DI 12:50
PROVIDERS: ATTEND Family Medicine
DX: M16.0 Bilateral primary osteoarthritis of hip (principal); M47.816 Spondylosis without myelopathy or radiculopathy, lumbar region; M41.86 Other forms of scoliosis, lumbar region

== ENCOUNTER 2021-06-25 05:00 | Emergency (ER) | payer MEDICARE, BC ==
[2021-06-25 05:16] VITALS: BP 145/67
[2021-06-25] MEDS ORDERED: ACETAMINOPHEN 325 MG TABLET PO STA (05:21)
--- NOTE | 2021-06-25 05:36 | ED Physician Documentation ---
PD HPI UPPER EXT INJURY - Stated complaint Stated Complaint: R ARM PX - Chief complaint Chief Complaint: Ext Problem - History obtained from History obtained from: Patient - History of Present Illness Location: Right, Wrist - Additonal information Additional information: Patient with a history of arthritis presenting for evaluation of pain to the right hand and forearm.Patient reports that last night she lifted a heavy comforter on her bed as she was getting ready to sleep and since that time she has had pain in this extremity. At the pain is constant. She tried 1 dose of regular Tylenol at midnight without significant improvement. The pain radiates from the wrist area to her hand and forearm. She denies numbness, weakness,Chest pain,Fever. She denies previous history of injury to this extremity. She reports having a history of arthritis but is not currently taking medications for it. Review of Systems Constitutional: denies: Fever Nose: denies: Congestion Cardiac: denies: Chest pain / pressure, Palpitations Respiratory: denies: Dyspnea, Cough GI: denies: Abdominal Pain, Vomiting : denies: Dysuria Skin: denies: Rash Musculoskeletal: reports: Extremity pain Neurologic: denies: Headache, Head injury PD PAST MEDICAL HISTORY - Past Medical History Past Medical History: Yes Cardiovascular: High cholesterol Respiratory: Asthma, Pneumonia Endocrine/Autoimmune: None GI: GERD, Ulcerative colitis, Other RESEARCH PROFESSOR: None : None HEENT: Dental implants Psych: None Musculoskeletal: Rheumatoid arthritis Derm: Rosacea - Past Surgical History Past Surgical History: Yes Ortho: Other HEENT: Cataracts, Tonsil/Adenoidectomy - Present Medications Home Medications: Ambulatory Orders Medication Instructions Recorded Confirmed Multivitamin [Multi Vitamin Daily] 1 mg PO DAILY 06/13/14 06/25/21 Docosahexaenoic Acid/Epa [Fish Oil 1 cap PO DAILY 12/23/14 06/25/21 Concentrate Softgel] Cholecalciferol (Vitamin D3) 1 tab ORAL DAILY 02/23/16 06/25/21 [Vitamin D3] Vit A/Vit C/Vit E/Zinc/Copper 1 each PO BID 07/20/17 06/25/21 [Icaps Areds Softgel] Lactobacillus Acidophilus 1 tab ORAL DAILY 07/29/19 06/25/21 [Probiotic Acidophilus] Mecobalamin [B-12] 1 tab PO DAILY 03/06/20 06/25/21 Vedolizumab [Entyvio] 300 mg IV ONCE 09/04/20 06/25/21 - Allergies Allergies/Adverse Reactions: Allergies Allergy/AdvReac Type Severity Reaction Status Date / Time prednisone AdvReac Rash Verified 06/25/21 05:13 Sulfa (Sulfonamide AdvReac Unknown Verified 06/25/21 05:13 Antibiotics) - Social History Does the pt smoke?: No Smoking Status: Never smoker Does the pt drink ETOH?: Yes Does the pt have substance abuse?: No - Immunizations Immunizations are current?: Yes - POLST Patient has POLST: No PD ED PE NORMAL - General General: Alert and oriented X 3, No acute distress, Well developed/nourished - HEENT HEENT: Atraumatic, Moist mucous membranes - Neck Neck: Supple, no meningeal sign - Cardiac Cardiac: RRR, No murmur, Strong equal pulses - Respiratory Respiratory: No respiratory distress, Clear bilaterally - Derm Derm: Normal color, Warm and dry, No rash - Extremities Extremities: Other (Mild tenderness and swelling to right wrist, No rashes Or erythema, no warmth to the joint, Full passive range of motion at right shoulder, elbow, wrist, Arthritic changes to both hands with no bony tenderness, Strong radial pulses, Well-perfused appearing skin ) Results - Vitals Vitals: Vital Signs - 24 hr 06/25/21 05:02 Temperature 36.3 C L Heart Rate 76 Respiratory 16 Rate Blood Pressure 145/67 H O2 Saturation 97 Oxygen O2 Source Room air PD MEDICAL DECISION MAKING - ED course ED course: Patient evaluated for pain in the region of her right wrist.No fall or significant trauma per her history. On exam she has mild tenderness and swelling. However no rash or signs of cellulitis or septic joint. She is afebrile. X-ray obtained with degenerative changes. Will apply wrist splint and continue with supportive care. Patient was given strict return precautions. She is neurovascularly intact. No signs of stroke. Departure - Departure Disposition: 01 Home, Self Care Clinical Impression: Right wrist sprain Qualifiers: Encounter type: initial encounter Qualified Code(s): S63.501A - Unspecified sprain of right wrist, initial encounter Condition: Stable Instructions: ED Sprain Wrist Comments: You were evaluated for pain to your right wrist. An x-ray showed a lot of changes related to arthritis but no signs of any broken or out of place bone.Please wear the wrist splint for support as needed. You can also use [id number] medication to help with pain such as Tylenol or Motrin.At this time there is no rash to suggest an infection or shingles. Please have close follow-up with your doctor if the pain persists. If the pain worsens or you notice new symptoms such as swelling, rash, fever, pain elsewhere please return to the emergency department. Discharge Date/Time: 06/25/21 06:35
--- NOTE | 2021-06-25 08:01 | XRAY Report ---
PROCEDURE: Wrist 3 View RT INDICATIONS: pain TECHNIQUE: 4 views of the wrist were acquired. COMPARISON: None FINDINGS: Bones: No acute fractures or dislocations. Moderate to severe osteoarthritic changes along radial as pect of right wrist are seen. Old injury involving tip of ulnar styloid is seen with well-corticated fragment. No suspicious bony lesions. Scaphoid view: Scaphoid is grossly intact. Soft tissues: No suspicious soft tissue calcifications. IMPRESSION: Moderate to severe osteoarthritic changes along radial aspect of right wrist. Old healed injury invol ving ulnar styloid tip. No acute wrist fracture or dislocation. No discrepancies preliminary reading. Reviewed by: Randal Forrester MD on 06/25/2021 8:00 AM PDT Approved by: Randal Forrester MD on 06/25/2021 8:00 AM PDT Station ID: [id number]
== END 2021-06-25 06:35 | disposition home or self-care (01) ==
LOC: ED 05:00
DX: S63.501A Unspecified sprain of right wrist, initial encounter (principal); X50.0XXA Overexertion from strenuous movement or load, initial encounter
CPT/HCPCS: 73110; 99282; 99283; A9270

== ENCOUNTER 2021-11-29 08:17 | Outpatient (CLI) | payer MEDICARE, BC ==
--- NOTE | 2021-11-29 15:36 | XRAY Report ---
PROCEDURE: Cervical Spine 2 View INDICATIONS: CERVICAL RADICULOPATHY TECHNIQUE: 3 view(s) of the cervical spine were acquired. COMPARISON: None. FINDINGS: Bones: No fractures or dislocations to the C7 level. The lateral masses of C1 appear intact on the odontoid view. No suspicious bony lesions. There is exaggerated lordosis of the cervical spine. The re is grade I C4 on C5 anterolisthesis. There is mild diffuse intervertebral disc space narrowing. Soft tissues: No prevertebral soft tissue swelling. IMPRESSION: Exaggerated lordosis, C4-5 anterolisthesis, and mild degenerative change. Reviewed by: Juanis Dietz MD on 11/29/2021 3:34 PM PDT Approved by: Juanis Dietz MD on 11/29/2021 3:34 PM PDT Station ID: [id number]
--- NOTE | 2021-11-29 16:03 | XRAY Report ---
PROCEDURE: Shoulder 3 View LT INDICATIONS: IMPNGEMENT SYNDROME OF LEFT SHOULDER TECHNIQUE: 3 views of the shoulder were acquired. COMPARISON: None. FINDINGS: Bones: No fractures or dislocations. No suspicious bony lesions. Visualized ribs appear intact. M oderate to severe acromioclavicular degenerative narrowing. Soft tissues: No suspicious soft tissue calcifications. IMPRESSION: No visualized outlet obstruction. Reviewed by: Tenisha Raymundo MD on 11/29/2021 4:01 PM PDT Approved by: Tenisha Raymundo MD on 11/29/2021 4:01 PM PDT Station ID: [id number]
== END 2021-11-29 08:18 | disposition home or self-care (01) ==
LOC: DI 08:17
PROVIDERS: ATTEND Family Medicine
DX: M75.42 Impingement syndrome of left shoulder (principal); M43.12 Spondylolisthesis, cervical region; M47.22 Other spondylosis with radiculopathy, cervical region

== ENCOUNTER 2022-01-10 08:49 | Outpatient (CLI) | payer MEDICARE, BC ==
--- NOTE | 2022-01-10 15:35 | MRI Report ---
PROCEDURE: Shoulder LT W/O INDICATIONS: LEFT SHOULDER ROTATOR CUFF TEAR OR RUPTURE TECHNIQUE: Noncontrast oblique coronal T2 fast spin echo with fat saturation, oblique sagittal T1 spin echo and T2 fast spin echo with fat saturation, axial T1 spin echo and T2 fast spin echo with fat saturation t hrough the shoulder. COMPARISON: None. FINDINGS: Image quality: Excellent. Rotator cuff: Low-grade articular and bursal surface partial-thickness tear involving distal supraspi natus at its insertion on humeral head is seen extending to muscular tendinous junction. Distal infra spinatus tendinosis is noted. Low-grade intrasubstance partial thickness tear involving distal subsca pularis is seen. No full-thickness rotator cuff tendon rupture. Mild supraspinatus muscle atrophy is seen on sagittal images. Bones and bursae: No bone marrow contusions or fractures. Moderate acromioclavicular joint osteoarth ritic changes are seen with joint space narrowing downward osteophyte formation depressing on musculo tendinous junction of supraspinatus. Moderate glenohumeral joint osteoarthritic changes also noted wi th joint space narrowing, subchondral sclerosis and cyst formation. There is small to moderate amount of joint effusion and subacromial subdeltoid bursal fluid. Small amount of subcoracoid bursal fluid is also noted. No gross loose bodies. Capsule and soft tissues: There is signal abnormality and contour irregularity involving superior ant erior labrum at 12 to 1:00 position. Similar signal abnormality involving inferior labrum at 5 to 7:0 0 position is also noted. The long head of the biceps tendinosis and low-grade intrasubstance partial thickness tear is seen. The rotator interval appears normal, without fibrosis. The coracohumeral li gament is normal in thickness. IMPRESSION: 1. Low-grade articular and bursal surface partial-thickness tear involving distal supraspinatus exten ding to muscular tendinous junction. Distal infraspinatus tendinosis. Low-grade intrasubstance partia l thickness tear involving distal subscapularis. No full-thickness rotator cuff tendon rupture. Mild supraspinatus muscle atrophy. 2. 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 No fracture or dislocation. Small to moderate amount of joint effusion and subacromial subdeltoid bursal fluid. Small amount of subcoracoid bursal fluid. 3. Finding is concerning for subtle superior anterior labral tear at 12 to 1:00 position an inferior labral tear at 5 to 7:00 position. 4. Tendinosis and low-grade intrasubstance partial thickness tear involving proximal intra-articular portion of long head of biceps. Reviewed by: Randal Forrester MD on 01/10/2022 3:34 PM PDT Approved by: Randal Forrester MD on 01/10/2022 3:34 PM PDT Station ID: [id number]
== END 2022-01-10 08:50 | disposition home or self-care (01) ==
LOC: DI 08:49
PROVIDERS: ATTEND Physical Medicine & Rehabilitation Pain Medicine
DX: M75.112 Incomplete rotator cuff tear or rupture of left shoulder, not specified as traumatic (principal); M62.512 Muscle wasting and atrophy, not elsewhere classified, left shoulder; M19.012 Primary osteoarthritis, left shoulder; M25.412 Effusion, left shoulder; S46.112A Strain of muscle, fascia and tendon of long head of biceps, left arm, initial encounter

== ENCOUNTER 2022-02-18 11:24 | Emergency (ER) | payer MEDICARE, BC ==
--- NOTE | 2022-02-18 12:10 | ED Physician Documentation ---
History of Present Illness - Stated complaint Stated Complaint: FALL - Chief complaint Chief Complaint: Trauma Ext - History obtained from History obtained from: Patient - History of Present Illness Timing: Today Pain level max: 5 Pain level now: 4 - Additonal information Additional information: Patient is an 86-year-old female who tripped and fell today while out on a walk. She fell onto hard ground. She is complaining of pain to the right knee. She was able to walk home. She put ice on it but it seemed that the ice hurts more. No head injury. No loss of consciousness. No headache. She thinks that she bit her lip as well. There is no bleeding. No dental pain. No neck or back pain. She also states that she broke her nail on her right fourth finger. She is able to move the finger without any pain. She is not on any blood thinners. Review of Systems Constitutional: denies: Fever, Chills GI: denies: Nausea, Vomiting, Diarrhea Skin: denies: Rash Musculoskeletal: denies: Neck pain, Back pain Neurologic: denies: Focal weakness, Numbness, Confused, Head injury, LOC PD PAST MEDICAL HISTORY - Past Medical History Past Medical History: Yes Cardiovascular: High cholesterol Respiratory: Asthma, Pneumonia Endocrine/Autoimmune: None GI: GERD, Ulcerative colitis, Other ACETYLENE CUTTER: None : None HEENT: Dental implants Psych: None Musculoskeletal: Rheumatoid arthritis Derm: Rosacea - Past Surgical History Past Surgical History: Yes Ortho: Other HEENT: Cataracts, Tonsil/Adenoidectomy - Present Medications Home Medications: Ambulatory Orders Medication Instructions Recorded Confirmed Multivitamin [Multi Vitamin Daily] 1 mg PO DAILY 06/13/14 06/25/21 Docosahexaenoic Acid/Epa [Fish Oil 1 cap PO DAILY 12/23/14 06/25/21 Concentrate Softgel] Cholecalciferol (Vitamin D3) 1 tab ORAL DAILY 02/23/16 06/25/21 [Vitamin D3] Vit A/Vit C/Vit E/Zinc/Copper 1 each PO BID 07/20/17 06/25/21 [Icaps Areds Softgel] Lactobacillus Acidophilus 1 tab ORAL DAILY 07/29/19 06/25/21 [Probiotic Acidophilus] Mecobalamin [B-12] 1 tab PO DAILY 03/06/20 06/25/21 Vedolizumab [Entyvio] 300 mg IV ONCE 09/04/20 06/25/21 - Allergies Allergies/Adverse Reactions: Allergies Allergy/AdvReac Type Severity Reaction Status Date / Time prednisone AdvReac Rash Verified 02/18/22 11:31 Sulfa (Sulfonamide AdvReac Unknown Verified 02/18/22 11:31 Antibiotics) - Social History Does the pt smoke?: No Smoking Status: Never smoker Does the pt drink ETOH?: Yes Does the pt have substance abuse?: No - Immunizations Immunizations are current?: Yes - POLST Patient has POLST: No PD ED PE NORMAL - Vitals Vital signs reviewed: Yes - General General: Alert and oriented X 3, No acute distress, Well developed/nourished - HEENT HEENT: Atraumatic, PERRL, Moist mucous membranes - Neck Neck: Supple, no meningeal sign, No bony TTP - Cardiac Cardiac: RRR - Respiratory Respiratory: No respiratory distress, Clear bilaterally - Abdomen Abdomen: Soft, Non tender, Non distended - Back Back: No spinal TTP - Derm Derm: Warm and dry - Extremities Extremities: No deformity, Other (Tender to palpation over the anterior aspect of the right knee, just inferior to the patella. Mild ecchymosis. Full range of motion of the knee. Neurovascular intact, ACL, MCL, PCL, LCL are intact. Patellar tendon intact. Quadricep tendon intact) - Neuro Neuro: Alert and oriented X 3 - Psych Psych: Normal mood, Normal affect Results - Vitals Vitals: Vital Signs - 24 hr 02/18/22 02/18/22 02/18/22 11:29 11:41 13:43 Temperature 36.8 C Heart Rate 78 64 69 Respiratory 20 16 18 Rate Blood Pressure 157/84 H 163/67 H O2 Saturation 100 100 97 Oxygen O2 Source Room air - Rads (name of study) Right knee x-ray Radiology: Final report received, EMP read contemporaneously, See rad report (No acute abnormality) PD MEDICAL DECISION MAKING - ED course Complexity details: reviewed results, re-evaluated patient, considered differential, d/w patient ED course: 86-year-old female with right knee contusion status post fall. No acute findings on x-ray. No indication for x-ray of the right finger. The only new pain was from the broken nail. Full range of motion and using the hand without difficulty. Ambulating without difficulty. Did not strike her head. No indication for head CT. No headache. She is not anticoagulated. No neurological deficits. GCS 15. Ambulating with a normal gait. Patient counseled regarding signs and symptoms for which I believe and urgent re- evaluation would be necessary. Patient with good understanding of and agreement to plan and is comfortable going home at this time This document was made in part using voice recognition software. While efforts are made to proofread this document, sound alike and grammatical errors may occur. Departure - Departure Disposition: 01 Home, Self Care Clinical Impression: Contusion of right knee Qualifiers: Encounter type: initial encounter Qualified Code(s): S80.01XA - Contusion of right knee, initial encounter Condition: Good Instructions: ED Contusion Lower Ext Follow-Up: Nael Cooper MD [Primary Care Provider] - Within 1 week Comments: Please follow-up with your doctor for further care. Your x-ray does not show any acute abnormalities today. This bruise should heal on its own. You can use Motrin or Tylenol as needed for pain at home. Return if you worsen.
--- NOTE | 2022-02-18 13:34 | XRAY Report ---
PROCEDURE: Knee 4 View RT INDICATIONS: fall, knee pain TECHNIQUE: 4 views of the right knee(s) were acquired. COMPARISON: None. FINDINGS: Bones: No fractures or dislocations. No suspicious bony lesions. Soft tissues: No joint effusion. Vascular calcifications are present. IMPRESSION: No acute osseous abnormality. If symptoms persist, follow-up radiographs and/or CT or MRI may be help ful for further evaluation. Reviewed by: Sagar Atwood MD on 02/18/2022 1:32 PM [facility] Approved by: Sagar Atwood MD on 02/18/2022 1:32 PM [facility] Station ID: [id number]
[2022-02-18 13:44] VITALS: BP 163/67
== END 2022-02-18 13:43 | disposition home or self-care (01) ==
LOC: ED 11:24
DX: S80.01XA Contusion of right knee, initial encounter (principal); W01.0XXA Fall on same level from slipping, tripping and stumbling without subsequent striking against object, initial encounter; Y93.01 Activity, walking, marching and hiking
CPT/HCPCS: 99282; 99283

== ENCOUNTER 2022-06-14 14:29 | Outpatient (CLI) | payer MEDICARE, BC ==
--- NOTE | 2022-06-14 16:06 | XRAY Report ---
PROCEDURE: Shoulder 3 View LT INDICATIONS: LEFT SHOULDER PAIN TECHNIQUE: 4 views of the shoulder were acquired. COMPARISON: None. FINDINGS: Bones: No fractures or dislocations. No suspicious bony lesions. Visualized ribs appear intact. Pe riarticular osteophyte formation at the acromioclavicular and glenohumeral joints. Soft tissues: No suspicious soft tissue calcifications. IMPRESSION: Osteoarthritis. No acute fracture. No osseous lesion. If symptoms and/or clinical suspic ion for pathology continue, further assessment with repeat plain films, or advanced imaging (e.g., CT , MRI, or bone scan) is recommended for further assessment. Reviewed by: Nydia York MD on 06/14/2022 4:05 PM PDT Approved by: Nydia York MD on 06/14/2022 4:05 PM PDT Station ID: [id number]
== END 2022-06-14 14:30 | disposition home or self-care (01) ==
LOC: DI.WOS 14:29
PROVIDERS: ATTEND Orthopaedic Surgery
DX: M19.012 Primary osteoarthritis, left shoulder (principal)

== ENCOUNTER 2022-11-18 07:02 | Outpatient (CLI) | payer MEDICARE, BC ==
--- NOTE | 2022-11-18 10:45 | XRAY Report ---
PROCEDURE: Foot 3 View BILAT INDICATIONS: BILATERAL FOOT PAIN TECHNIQUE: 3 views of the right and left foot were acquired. COMPARISON: Left foot radiographs 08/16/2018. FINDINGS: Bones: Bilateral pes planus. Postsurgical changes of the right foot second metatarsal head with a sc rew in place. The screw appears intact. No acute fracture or dislocation identified bilaterally. Dege nerative changes at the first MTP joint and scattered IP joints present at both feet. Left foot bunio n deformity Soft tissues: No suspicious soft tissue calcifications . IMPRESSION: No acute bony abnormality. If pain persists with conservative management, consider repeat radiographs in 10-14 days or cross-sectional imaging. Reviewed by: Sagar Atwood MD on 11/18/2022 10:43 AM PDT Approved by: Sagar Atwood MD on 11/18/2022 10:43 AM PDT Station ID: [id number]
== END 2022-11-18 07:03 | disposition home or self-care (01) ==
LOC: DI 07:02
PROVIDERS: ATTEND Podiatrist
DX: M21.42 Flat foot [pes planus] (acquired), left foot (principal); M21.41 Flat foot [pes planus] (acquired), right foot; M19.072 Primary osteoarthritis, left ankle and foot; M19.071 Primary osteoarthritis, right ankle and foot; M21.612 Bunion of left foot